=== PATIENT | female | born 1990 ===

== ENCOUNTER 2018-09-20 20:34 | Emergency (ER) | payer OTHER ==
[2018-09-19 17:54] VITALS: BMI 30.4
[2018-09-21 03:09] VITALS: BP 116/77; PULSE 82; RESP 19; TEMP 98.2
--- NOTE | 2018-09-21 08:51 | OBHP ---
Datetime: 09/20/2018 21:45 IP Adm Impression: Term, intrauterine IP Chief Complaint Other: Decreased FM and Lower back pain IP Admit Plan: Observation/Evaluation Admit Comment, IP Provider: [id number] Pt is a 27 yo F EGA of 37.2 wk VALERIA 10/09/18 based on reported due date and LMP 01/03/18. Pt is he re due to decreased movements for 2 days, baby is not as active as usual. Also has B/L right an d left lower back pain for 3 days radiates to buttock, not down leg. Denies dysuria or hematuria. Fe els occasional contractions every few days last felt 3 days ago. Denies vaginal bleeding or LOF. Erik es fever, chills, headaches, blurry vision, SOB, chest pain, dizziness, nausea, vomiting, diarrhea, o r constipation. All other systems reviewed and negative Provider: Wei Ram PMHx: Denies Meds: PNV FMHx: DM-sister, father and mother Allergies: NKDA SurgHx: Hernia 2003 SOCHx: Denies EtOH, tobacco, or drug use OBGYN: No complications with , No DM or HTN in pregancy, Last pap at 20wks-reports normal No hx of STD's Labs: Pt does not have records with her, reports GBS Positive Assessment 27 yo F EGA of 37.2 wk VALERIA 10/09/18 based on reported due date and LMP 01/03/18. Pt is here due t o reported decreased movements for 2 days and back pain. Plan: -Observe in [facility] -Monitor heart tracing 140's, moderate variability, 15x15 accelerations, no decels -Monitor VS- BP 124/82 Case reveiwed and discussed with attending Jigna Mendes PGY1 Addendum: I saw and examined patient to presentation. Patient transferred to OB ED for prolonged monitoring . heart tracing category 1 with accelerations, no decelerations. Patient discharged home with labor precautions [place] Extremities - PN: Normal Abdomen - PN: Normal Lungs - PN: Normal Heart - PN: Normal HEENT - PN: Normal General - PN: Normal FHR - Baseline A Provider: 140 Comments, ACOG Physical Exam: GEN: NAD HEENT: NCAT, EOMI RESP: CTA, no wheezes, rales, or rhonchi, CV: RRR, No m/r/g ABD: Gravid, Soft, nontender to palpation Back: B/L left and right lower back tenderness to palpation, Negative B/L CVA tenderness LE: no edema Monitor FHR tracing 140's, moderate variability, 15x15 accels, no decels IP Hx Assessment: The History has been Reviewed and is Current EGA AdmitDate IP: 37.2 Vital Signs Provider: Reviewed; Within Normal Limits IP Chief Complaint: Decreased movement; Maternal discomfort NICHD Variability Prov Fetus A: Moderate 6-25bpm NICHD Accel Fetus A IP Provider: 15X15 FHR Category Provider Fetus A: Category I NICHD Decel Fetus A IP Provider: None
== END 2018-09-20 23:00 | disposition home or self-care (01) ==
LOC: H.EROB2 20:34
DX: O36.8131 Decreased fetal movements, third trimester, fetus 1 (principal); O26.93 Pregnancy related conditions, unspecified, third trimester; M54.9 Dorsalgia, unspecified

== ENCOUNTER 2018-10-02 00:33 | Emergency (ER) | payer OTHER ==
[2018-09-19 17:54] VITALS: BMI 30.4
--- NOTE | 2018-10-02 02:43 | OBDCSUM ---
Datetime: 10/02/2018 02:33 Discharged to, Provider: Home Follow up at, Provider: OB Disch Instr Activity: Normal activity Disch Instr Diet: Regular Discharge Instructions, Provider: Routine instructions given Discharge Diagnosis, Provider: False Labor - Undelivered Discharge Time: 10/02/2018 02:35 Follow up in weeks, Provider: Disch Referrals: None Contraception discussed, Prov: Yes
--- NOTE | 2018-10-02 02:44 | OBHP ---
Datetime: 10/02/2018 01:26 IP Adm Impression: Term, intrauterine IP Admit Plan: Observation/Evaluation Admit Comment, IP Provider: 27 YO with IUP at EGA 39 weeks as per LMP , VALERIA 10/09/18, who presents today to EDOB with c/o intermittent lower abdominal pain and lower back pain, 12/10, pressur e like in character, intermittent, irregular that started in the morning, associated with nausea and vomiting x 2 episodes today. Patient denies VB, LOF, regular painful contractions, also denies PUENTE, SO B, dizziness, chills, fever, dysuria or N/V at this time of the encounter. Patient reports she was fe eling constipation earlier, although was able to have BM x1 today. Patient reports +FM. ROS: unremarkable, except as per HPI. OBGYN: . Denies problems in current . provider: [facility] Dr Jamison PMH: Denies FMH: Mother and Father with DM SOCHx: Denies ETOH, tobacco or rec drug use. SURG: ALLERG: NKA MEDS: PNV LABS: +GBS on 09/13/18. On 06/28/18: HIV neg, RPR nonreactive, HbsAg negative. ABO O+ PE GEN: NAD HEENT: NCAT RESP: CTA b/l CV: RRR, S1 S2 normal, no murmurs ABD: Gravid, soft to palpation EXT: No edema Pelvic exam done with nurse Hodgson in room: Cevical Os open 1 finger tip A/P 27 YO with IUP at EGA 39 weeks as per LMP , VALERIA 10/09/18, who presents c/o intermittent irregular pressure like pain since yesterday morning. Also c/o 2 episodes of vomiting earlier today. Patient appears otherwise comfortable and in NAD. Impression: Possible onset of labor Patient is GBS + Plan -Maternal VS monitoring, monitoring of COntx -FHR monitoring: FHR within normal range 140s to 150s -Evaluation and DC home Case discussed with attending Dr Gato Lopez MD PGY1 Addendum by Dr. Hoskins: I have evluated the patient independently, the patient is closed on exam - L/T/High. patient ruled out for labor. FHR = 120 mod debora, +accels, no decels, reactive tracing. Disch arged home, labor precautions, f/u in clinic Pelvic Type - PN: Adequate Extremities - PN: Normal Abdomen - PN: Normal Back - PN: Normal Breast - PN: Normal Lungs - PN: Normal Heart - PN: Normal Thyroid - PN: Normal Neurologic - PN: Normal HEENT - PN: Normal General - PN: Normal FHR - Baseline A Provider: 140s Contraction Comments Provider: Irregular Comments, ACOG Physical Exam: Please see Triage comment IP Hx Assessment: The History has been Reviewed and is Current EGA AdmitDate IP: 39.0 Vital Signs Provider: Reviewed; Within Normal Limits IP Chief Complaint: Maternal discomfort NICHD Variability Prov Fetus A: Moderate 6-25bpm NICHD Accel Fetus A IP Provider: 15X15 NICHD Decel Fetus A IP Provider: None Dilatation, Provider: closed Effacement, Provider: thick Station, Provider: -3 Genitourinary Exam: Normal DTRs - PN: Normal
[2018-10-02 10:40] VITALS: BP 114/72; PULSE 85; O2SAT 99
== END 2018-10-02 02:32 | disposition home or self-care (01) ==
LOC: H.EROB2 00:33
DX: O26.93 Pregnancy related conditions, unspecified, third trimester (principal); R10.2 Pelvic and perineal pain; M54.5 Low back pain; O21.0 Mild hyperemesis gravidarum; Z3A.39 39 weeks gestation of pregnancy